=== PATIENT | male | born 1980 | race Caucasian/White ===

== ENCOUNTER 2016-09-02 01:33 | Emergency (ER) | payer OTHER, BC ==
[2016-09-02 01:44] VITALS: BMI 22.0
[2016-09-02 01:48] VITALS: O2SAT 97
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
[2016-09-02 02:49] LABS: ADD MANUAL DIFF? NO
[2016-09-02 03:09] LABS: BASO # 0.03 K/mm3 (0.0-2.0); BASO % 0.6 % (0.0-3.0); EOS # 0.1 (0.0-0.7); GRAN % 46.7 % (50.0-68.0); HEMATOCRIT 38.3 % (42.0-52.0); LYMPH # 2.2 (1.2-3.4); LYMPH % 43.6 % (22.0-35.0); MEAN CELL VOLUME 87.2 fL (80.0-105.0); MEAN CORPUSCULAR HGB CONC 35.5 g/dl (31.0-37.0); MEAN PLATELET VOLUME 9.2 fl (7.0-11.0); MONO # 0.4 (0.1-0.6); MONO % 7.1 % (1.0-6.0); PLATELET COUNT 240 10^3/uL (120.0-450.0); RED CELL DISTRIBUTION WIDTH 12.8 % (11.5-14.5)
[2016-09-02 03:14] LABS: WHITE BLOOD COUNT 4.9 10^3/ul (4.5-11.0)
[2016-09-02 03:16] LABS: ALB/GLOB RATIO 1.1 (1.1-1.8); ALKALINE PHOSPHATASE 76 U/L (38-133); ALT/SGPT 29 U/L (7-56); AST/SGOT 25 U/L (15-59); BILIRUBIN,TOTAL 0.6 mg/dL (0.2-1.3); BLOOD UREA NITROGEN 11 mg/dL (7-21); CALCIUM 8.7 mg/dL (8.4-10.5); CARBON DIOXIDE 28 mmol/L (21-33); CHLORIDE 100 mmol/L (95-110); GFR AFRICAN-AMERICAN > 60; GLUCOSE,RANDOM 111 mg/dL (70-110); POTASSIUM 3.8 mmol/L (3.6-5.0); SODIUM 140 mmol/L (132-148); TOTAL PROTEIN 7.6 g/dL (5.8-8.3)
[2016-09-02 04:03] VITALS: BP 105/72; PULSE 64; RESP 16; TEMP 97.7
== END 2016-09-02 05:34 | disposition home or self-care (01) ==
LOC: ED 01:33
DX: Z77.21 Contact with and (suspected) exposure to potentially hazardous body fluids (principal)